=== PATIENT | male | born 1965 | race Caucasian/White ===

== ENCOUNTER 2018-04-15 13:00 | Inpatient (IN) | payer MEDICAID ==
[~2018-04-15] VITALS: Ht 175.3 cm; Wt 77.1 kg
[2018-04-15 13:35] VITALS: BP 125/68
[2018-04-15] MEDS ORDERED: HALOPERIDOL 5 MG TABLET PO PRN (13:45)
[2018-04-15] MEDS ORDERED: RISP.5 PO (14:40)
[2018-04-15 16:00] VITALS: BP 124/76
[2018-04-15] MEDS: LORazepam 2 MG TABLET PO PRN (16:43)
[2018-04-15] MEDS ORDERED: MAG HYDROX/AL HYDROX/SIMETH ES 30 ML SUSPENSION UDCUP PO PRN (17:15)
[2018-04-15] MEDS ORDERED: IBUPROFEN 400 MG TABLET PO PRN (17:15)
[2018-04-15] MEDS ORDERED: ACETAMINOPHEN 325 MG TABLET PO PRN (17:15)
[2018-04-15] MEDS ORDERED: LOPERAMIDE HCL 2 MG CAPSULE PO PRN (17:15)
[2018-04-15] MEDS ORDERED: NICOTINE 14 MG/24 HOUR PATCH TD PRN (17:15)
[2018-04-15] MEDS ORDERED: ONDANSETRON HCL 4 MG TABLET PO PRN (17:15)
[2018-04-15] MEDS ORDERED: MAGNESIUM HYDROXIDE SUSPENSION 30 ML UDCUP PO PRN (17:15)
[2018-04-15] MEDS ORDERED: CloNIDine HCL 0.1 MG TABLET PO PRN (17:15)
[2018-04-15] MEDS ORDERED: ALBUTEROL SULFATE HFA 90 MCG/PUFF 8 GM INHALER IH PRN (17:15)
[2018-04-15] MEDS ORDERED: PETROLATUM,WHITE 71 GM JELLY TP PRN (17:15)
[2018-04-16 08:02] LABS: AMPHET/METH SCREEN,URINE NEGATIVE (NEGATIVE); BARBITURATE SCREEN, URINE NEGATIVE (NEGATIVE); BENZODIAZEPINES SCREEN,URINE NEGATIVE (NEGATIVE); CANNABINOID SCREEN,URINE NEGATIVE (NEGATIVE); COCAINE SCREEN,URINE NEGATIVE (NEGATIVE); METHADONE SCREEN, URINE NEGATIVE (NEGATIVE); OPIATE SCREEN,URINE NEGATIVE (NEGATIVE)
[2018-04-16 08:13] LABS: PHENCYCLIDINE SCREEN,URINE NEGATIVE (NEGATIVE)
[2018-04-16 08:25] VITALS: BP 104/62
[2018-04-16 08:47] LABS: BILIRUBIN,URINE NEGATIVE (NEGATIVE); GLUCOSE, URINE (UA) NEGATIVE (NEGATIVE); KETONES,URINE NEGATIVE (NEGATIVE); LEUKOCYTE ESTERASE ,URINE NEGATIVE (NEGATIVE); NITRATE,URINE NEGATIVE (NEGATIVE); OCCULT BLOOD,URINE TRACE (NEGATIVE); PH,URINE 5.5 (5.0-8.0); PROTEIN,URINE NEGATIVE (NEGATIVE); UROBILINOGEN,URINE 0.2 mg/dL (<=1.0)
[2018-04-16 08:53] LABS: APPEARANCE,URINE HAZY (CLEAR)
[2018-04-16 09:15] LABS: BACTERIA,URINE Moderate /HPF (None Seen); CALCIUM OXALATE CRYSTALS,UR Few /LPF (None Seen); WBC,URINE 0-2 /HPF (0-5)
[2018-04-16] MEDS: DOCUSATE SODIUM 100 MG CAPSULE PO PRN (11:05)
[2018-04-16] MEDS: OLANZapine 5 MG TABLET PO SCH (16:03)
[2018-04-16] MEDS: LORazepam 2 MG TABLET PO PRN (16:03)
[2018-04-16 16:18] VITALS: BP 119/68
[2018-04-17 06:53] VITALS: BP 110/68
[2018-04-17] MEDS: OLANZapine 5 MG TABLET PO SCH ×2 (08:48→16:09)
[2018-04-17] MEDS: FLUoxetine HCL 20 MG CAPSULE PO SCH (08:48)
[2018-04-17] MEDS: DOCUSATE SODIUM 100 MG CAPSULE PO PRN (13:25)
[2018-04-17 16:00] VITALS: BP 115/69
[2018-04-17] MEDS: LORazepam 2 MG TABLET PO PRN (16:09)
[2018-04-17] MEDS: ZOLPIDEM TARTRATE 10 MG TABLET PO PRN (20:25)
[2018-04-18 01:14] VITALS: BP 102/60
[2018-04-18] MEDS: FLUoxetine HCL 20 MG CAPSULE PO SCH (08:19)
[2018-04-18] MEDS: OLANZapine 5 MG TABLET PO SCH (08:19)
[2018-04-18] MEDS: LORazepam 2 MG TABLET PO PRN ×2 (08:19→16:27)
[2018-04-18 16:16] VITALS: BP 115/75
[2018-04-18] MEDS: OLANZapine 7.5 MG TABLET PO SCH (16:27)
[2018-04-18] MEDS: ZOLPIDEM TARTRATE 10 MG TABLET PO PRN (20:23)
[2018-04-19 05:34] VITALS: BP 115/87
[2018-04-19] MEDS: FLUoxetine HCL 20 MG CAPSULE PO SCH (08:02)
[2018-04-19] MEDS: OLANZapine 7.5 MG TABLET PO SCH ×2 (08:02→16:27)
[2018-04-19 08:20] VITALS: BP 115/74
[2018-04-19 16:02] VITALS: BP 106/65
[2018-04-19] MEDS: LORazepam 2 MG TABLET PO PRN (16:27)
[2018-04-19] MEDS: ZOLPIDEM TARTRATE 10 MG TABLET PO PRN (20:17)
[2018-04-20 05:28] VITALS: BP 102/63
[2018-04-20 08:24] VITALS: BP 100/60
[2018-04-20] MEDS: OLANZapine 7.5 MG TABLET PO SCH ×2 (08:48→16:58)
[2018-04-20] MEDS: FLUoxetine HCL 20 MG CAPSULE PO SCH (08:48)
[2018-04-20 16:02] VITALS: BP 111/65
[2018-04-20] MEDS: ZOLPIDEM TARTRATE 10 MG TABLET PO PRN (21:25)
[2018-04-21 08:02] VITALS: BP 104/60
[2018-04-21] MEDS: OLANZapine 7.5 MG TABLET PO SCH (08:33)
[2018-04-21] MEDS: FLUoxetine HCL 20 MG CAPSULE PO SCH (08:33)
[2018-04-21] MEDS ORDERED: FLUO-191 PO (11:39)
[2018-04-21] MEDS ORDERED: OLAN7.5T2 PO (11:39)
== END 2018-04-21 13:15 | disposition home or self-care (01) | DRG 750 ==
LOC: B2S 14:44
PROVIDERS: ADMIT Psychiatry & Neurology Psychiatry; ATTEND Psychiatry & Neurology Psychiatry
DX: F25.0 Schizoaffective disorder, bipolar type (principal); R45.851 Suicidal ideations; Z91.19 Patient's noncompliance with other medical treatment and regimen; F41.9 Anxiety disorder, unspecified; F19.90 Other psychoactive substance use, unspecified, uncomplicated; F10.10 Alcohol abuse, uncomplicated; F15.90 Other stimulant use, unspecified, uncomplicated; Z71.51 Drug abuse counseling and surveillance of drug abuser; Z59.0 Homelessness; Z91.5 Personal history of self-harm; Z71.41 Alcohol abuse counseling and surveillance of alcoholic
CPT/HCPCS: 80307; 87081; 87086

== ENCOUNTER 2018-04-21 23:00 | Inpatient (IN) | payer MEDICAID ==
[~2018-04-21] VITALS: Ht 177.8 cm; Wt 79.8 kg
[~2018-04-21 23:00] MED LIST: FLUO-191 PO; OLAN7.5T2 PO; RISP.5 PO
[2018-04-21] MEDS ORDERED: HALOPERIDOL 5 MG TABLET PO PRN (23:30)
[2018-04-21 23:31] VITALS: BP 127/84
[2018-04-22 00:14] VITALS: BP 121/68
[2018-04-22] MEDS: LORazepam 2 MG TABLET PO PRN ×3 (01:38→17:08)
[2018-04-22] MEDS: ZOLPIDEM TARTRATE 10 MG TABLET PO PRN ×2 (02:35→20:14)
[2018-04-22] MEDS ORDERED: ACETAMINOPHEN 325 MG TABLET PO PRN (06:45)
[2018-04-22] MEDS ORDERED: MAG HYDROX/AL HYDROX/SIMETH ES 30 ML SUSPENSION UDCUP PO PRN (06:45)
[2018-04-22] MEDS ORDERED: LOPERAMIDE HCL 2 MG CAPSULE PO PRN (06:45)
[2018-04-22] MEDS ORDERED: MAGNESIUM HYDROXIDE SUSPENSION 30 ML UDCUP PO PRN (06:45)
[2018-04-22] MEDS ORDERED: IBUPROFEN 400 MG TABLET PO PRN (06:45)
[2018-04-22] MEDS ORDERED: DOCUSATE SODIUM 100 MG CAPSULE PO PRN (06:45)
[2018-04-22] MEDS ORDERED: PETROLATUM,WHITE 71 GM JELLY TP PRN (06:45)
[2018-04-22] MEDS ORDERED: ONDANSETRON HCL 4 MG TABLET PO PRN (06:45)
[2018-04-22 08:38] VITALS: BP 103/64
[2018-04-22 16:03] VITALS: BP 113/62
[2018-04-22] MEDS: OLANZapine 7.5 MG TABLET PO SCH (17:08)
[2018-04-23 00:35] VITALS: BP 110/68
[2018-04-23] MEDS: LORazepam 2 MG TABLET PO PRN ×3 (05:04→18:05)
[2018-04-23 08:00] VITALS: BP 115/70
[2018-04-23] MEDS: OLANZapine 7.5 MG TABLET PO SCH ×2 (08:45→16:02)
[2018-04-23] MEDS: FLUoxetine HCL 20 MG CAPSULE PO SCH (08:46)
[2018-04-23 16:00] VITALS: BP 111/90
[2018-04-24 01:04] VITALS: BP 106/60
[2018-04-24 08:21] VITALS: BP 100/60
[2018-04-24] MEDS: LORazepam 2 MG TABLET PO PRN ×2 (08:34→14:10)
[2018-04-24] MEDS: OLANZapine 7.5 MG TABLET PO SCH ×2 (08:34→16:01)
[2018-04-24] MEDS: FLUoxetine HCL 20 MG CAPSULE PO SCH (08:35)
[2018-04-24 16:08] VITALS: BP 103/71
[2018-04-24] MEDS: ZOLPIDEM TARTRATE 10 MG TABLET PO PRN (20:28)
[2018-04-25 03:11] VITALS: BP 101/68
[2018-04-25 08:15] VITALS: BP 107/54
[2018-04-25] MEDS: FLUoxetine HCL 20 MG CAPSULE PO SCH (09:00)
[2018-04-25] MEDS: OLANZapine 7.5 MG TABLET PO SCH ×2 (09:00→16:20)
[2018-04-25] MEDS: LORazepam 2 MG TABLET PO PRN ×2 (12:49→19:54)
[2018-04-25] MEDS: PROPRANOLOL HCL 10 MG TABLET PO SCH (16:20)
[2018-04-25 16:29] VITALS: BP 102/66
[2018-04-25 19:50] VITALS: BP 115/70
[2018-04-25] MEDS: ZOLPIDEM TARTRATE 10 MG TABLET PO PRN (21:39)
[2018-04-26 01:39] VITALS: BP 108/64
[2018-04-26 08:28] VITALS: BP 102/67
[2018-04-26 09:17] VITALS: BP 112/71
[2018-04-26] MEDS: FLUoxetine HCL 20 MG CAPSULE PO SCH (09:17)
[2018-04-26] MEDS: PROPRANOLOL HCL 10 MG TABLET PO SCH (09:17)
[2018-04-26] MEDS: OLANZapine 7.5 MG TABLET PO SCH (09:18)
[2018-04-26] MEDS ORDERED: PROP10TA72 PO ×2 (13:15→14:13)
[2018-04-26] MEDS ORDERED: FLUO10TA3 PO (14:12)
[2018-04-26] MEDS ORDERED: FLUO10CA21 PO (14:12)
[2018-04-26] MEDS ORDERED: OLAN7.5T2 PO (14:13)
== END 2018-04-26 16:35 | disposition home or self-care (01) | DRG 750 ==
LOC: B2S 23:31
PROVIDERS: ADMIT Psychiatry & Neurology Psychiatry; ATTEND Psychiatry & Neurology Psychiatry
DX: F25.0 Schizoaffective disorder, bipolar type (principal); R45.851 Suicidal ideations; Z91.19 Patient's noncompliance with other medical treatment and regimen; F41.9 Anxiety disorder, unspecified; F10.10 Alcohol abuse, uncomplicated; F19.90 Other psychoactive substance use, unspecified, uncomplicated; F15.90 Other stimulant use, unspecified, uncomplicated; R00.0 Tachycardia, unspecified; M19.90 Unspecified osteoarthritis, unspecified site; Z79.899 Other long term (current) drug therapy; Z91.5 Personal history of self-harm; Z59.0 Homelessness; Z71.41 Alcohol abuse counseling and surveillance of alcoholic; Z71.51 Drug abuse counseling and surveillance of drug abuser
CPT/HCPCS: 87081

== ENCOUNTER 2018-04-30 08:29 | Inpatient (IN) | payer MEDICAID ==
[~2018-04-30] VITALS: Ht 180.3 cm; Wt 81.9 kg
[~2018-04-30 08:29] MED LIST changes: -FLUO-191 PO; -RISP.5 PO
[2018-04-30] MEDS ORDERED: LORA1TAB3 PO (20:23)
[2018-05-01 14:53] VITALS: BP 114/72
[2018-05-01] MEDS: LORazepam 2 MG TABLET PO PRN ×2 (15:15→19:18)
[2018-05-01 16:08] VITALS: BP 116/70
[2018-05-01] MEDS: ZOLPIDEM TARTRATE 10 MG TABLET PO PRN (20:57)
[2018-05-02] MEDS: LORazepam 2 MG TABLET PO PRN ×2 (04:21→16:12)
[2018-05-02 06:14] VITALS: BP 110/68
[2018-05-02 08:06] VITALS: BP 112/76
[2018-05-02] MEDS: OLANZapine 7.5 MG TABLET PO SCH ×2 (09:54→16:12)
[2018-05-02 16:06] VITALS: BP 112/74
[2018-05-03 00:16] VITALS: BP 105/65
[2018-05-03 08:10] VITALS: BP 110/67
[2018-05-03] MEDS: OLANZapine 7.5 MG TABLET PO SCH ×2 (08:50→16:43)
[2018-05-03 16:41] VITALS: BP 126/77
[2018-05-03] MEDS: LORazepam 2 MG TABLET PO PRN (16:44)
[2018-05-03] MEDS: ZOLPIDEM TARTRATE 10 MG TABLET PO PRN (20:22)
[2018-05-04] MEDS: LORazepam 2 MG TABLET PO PRN ×2 (04:59→17:29)
[2018-05-04 08:10] VITALS: BP 116/70
[2018-05-04] MEDS: OLANZapine 7.5 MG TABLET PO SCH ×2 (08:37→16:01)
[2018-05-04 16:16] VITALS: BP 110/76
[2018-05-04] MEDS: ZOLPIDEM TARTRATE 10 MG TABLET PO PRN (20:34)
[2018-05-05] MEDS: LORazepam 2 MG TABLET PO PRN (00:37)
[2018-05-05 02:20] VITALS: BP 103/70
[2018-05-05 08:19] VITALS: BP 110/66
[2018-05-05] MEDS: FLUoxetine HCL 20 MG CAPSULE PO SCH (09:00)
[2018-05-05] MEDS: OLANZapine 7.5 MG TABLET PO SCH ×2 (10:32→16:03)
[2018-05-05 16:49] VITALS: BP 106/74
[2018-05-05] MEDS: ZOLPIDEM TARTRATE 10 MG TABLET PO PRN (20:33)
[2018-05-06 06:53] VITALS: BP 102/68
[2018-05-06 08:34] VITALS: BP 107/66
[2018-05-06] MEDS: OLANZapine 7.5 MG TABLET PO SCH ×2 (09:20→16:49)
[2018-05-06] MEDS: FLUoxetine HCL 20 MG CAPSULE PO SCH (09:20)
[2018-05-06 16:06] VITALS: BP 106/64
[2018-05-06] MEDS: LORazepam 2 MG TABLET PO PRN (16:49)
[2018-05-07 01:50] VITALS: BP 110/74
[2018-05-07] MEDS: FLUoxetine HCL 20 MG CAPSULE PO SCH (08:34)
[2018-05-07] MEDS: OLANZapine 7.5 MG TABLET PO SCH ×2 (08:34→16:14)
[2018-05-07 08:38] VITALS: BP 105/67
[2018-05-07] MEDS: LORazepam 2 MG TABLET PO PRN (12:19)
[2018-05-08] VITALS: BP 102/61
[2018-05-08 08:09] VITALS: BP 109/64
[2018-05-08] MEDS: OLANZapine 7.5 MG TABLET PO SCH ×2 (09:01→16:01)
[2018-05-08] MEDS: FLUoxetine HCL 20 MG CAPSULE PO SCH (09:01)
[2018-05-08] MEDS: LORazepam 2 MG TABLET PO PRN ×2 (14:31→20:01)
[2018-05-08 20:03] VITALS: BP 108/72
[2018-05-09 03:25] VITALS: BP 101/70
[2018-05-09 08:24] VITALS: BP 100/70
[2018-05-09] MEDS: FLUoxetine HCL 20 MG CAPSULE PO SCH ×2 (08:52→10:34)
[2018-05-09] MEDS: OLANZapine 7.5 MG TABLET PO SCH ×3 (08:52→16:14)
[2018-05-09 16:11] VITALS: BP 112/67
[2018-05-09] MEDS: LORazepam 2 MG TABLET PO PRN (16:14)
[2018-05-10 01:34] VITALS: BP 108/67
[2018-05-10] MEDS ORDERED: FLUO-191 PO (07:57)
[2018-05-10 08:50] VITALS: BP 116/66
[2018-05-10] MEDS: FLUoxetine HCL 20 MG CAPSULE PO SCH ×2 (08:51→09:00)
[2018-05-10] MEDS: OLANZapine 7.5 MG TABLET PO SCH ×2 (08:51→09:00)
== END 2018-05-10 10:45 | disposition home or self-care (01) | DRG 750 ==
LOC: B3A 05-01 14:07 → B2S 05-04 20:30
PROVIDERS: ATTEND Psychiatry & Neurology Psychiatry
DX: F25.0 Schizoaffective disorder, bipolar type (principal); R45.851 Suicidal ideations; F41.9 Anxiety disorder, unspecified; G89.29 Other chronic pain; M19.072 Primary osteoarthritis, left ankle and foot; F10.10 Alcohol abuse, uncomplicated; D64.9 Anemia, unspecified; F19.10 Other psychoactive substance abuse, uncomplicated; M54.9 Dorsalgia, unspecified; Z79.899 Other long term (current) drug therapy; Z71.41 Alcohol abuse counseling and surveillance of alcoholic; Z71.51 Drug abuse counseling and surveillance of drug abuser; Z88.8 Allergy status to other drugs, medicaments and biological substances

== ENCOUNTER 2018-04-30 19:50 | Emergency (ER) | payer MEDICAID ==
[~2018-04-30] VITALS: Ht 182.9 cm; Wt 80.0 kg
[~2018-04-30 19:50] MED LIST changes: +FLUO10CA21 PO; +PROP10TA72 PO
[2018-04-30] MEDS ORDERED: LORA1TAB3 PO (20:23)
[2018-04-30 20:57] LABS: AMPHET/METH SCREEN,URINE NEGATIVE (NEGATIVE); BARBITURATE SCREEN, URINE NEGATIVE (NEGATIVE); BENZODIAZEPINES SCREEN,URINE NEGATIVE (NEGATIVE); CANNABINOID SCREEN,URINE NEGATIVE (NEGATIVE); COCAINE SCREEN,URINE NEGATIVE (NEGATIVE); METHADONE SCREEN, URINE NEGATIVE (NEGATIVE); OPIATE SCREEN,URINE NEGATIVE (NEGATIVE)
[2018-04-30 20:58] LABS: PHENCYCLIDINE SCREEN,URINE NEGATIVE (NEGATIVE)
[2018-04-30 22:51] LABS: BASOPHILS % (AUTO) 0.8 % (0.0-2.0); EOSINOPHILS % (AUTO) 3.5 % (1.0-6.0); HEMATOCRIT 35.5 % (41-53); LYMPHOCYTES # (AUTO) 2.5 K/uL (1.0-4.8); LYMPHOCYTES % (AUTO) 32.9 % (22.0-44.0); MEAN CORPUSCULAR HEMOGLOBIN 31.3 pg (26.0-34.0); MEAN CORPUSCULAR HGB CONC 33.8 G/dL (31.0-37.0); MEAN CORPUSCULAR VOLUME 93 fL (80-100); MONOCYTES # (AUTO) 0.9 K/uL (0.1-1.0); MONOCYTES % (AUTO) 11.5 % (2.0-9.0); NEUTROPHILS # (AUTO) 3.9 K/uL (1.8-7.7); NEUTROPHILS % (AUTO) 51.3 % (40.0-70.0); PLATELET COUNT (AUTO) 319 K/uL (150-450); RED BLOOD CELL COUNT(AUTO) 3.83 MIL/uL (4.50-5.90); RED CELL DISTRIBUTION WIDTH 14.7 % (11.5-14.5)
[2018-04-30 23:03] LABS: ANION GAP 7 mmol/L (8-16); CALCIUM, TOTAL 8.5 mg/dL (8.8-10.5); CARBON DIOXIDE 29 mmol/L (22-29); CHLORIDE 106 mmol/L (98-107); CREATININE 0.68 mg/dL (0.60-1.30); GLOMERULAR FILTR. RATE CALC > 60 mL/min (>60); GLUCOSE,RANDOM 98 mg/dL (70-110); POTASSIUM 3.9 mmol/L (3.5-5.1); SODIUM SERUM 142 mmol/L (136-145); UREA NITROGEN, BLOOD 9 mg/dL (7-18)
[2018-04-30 23:10] LABS: ALANINE AMINOTRANSFERASE 27 U/L (12-78); ALBUMIN 3.3 g/dL (3.4-5.0); ALKALINE PHOSPHATASE 103 U/L (46-116); ASPARTATE AMINOTRANSFERASE 16 U/L (15-37); BILIRUBIN,TOTAL 0.2 mg/dL (0.1-1.0); TOTAL PROTEIN, SERUM 6.8 g/dL (6.4-8.2)
[2018-05-01 01:42] VITALS: BP 120/90
== END 2018-05-01 01:44 | disposition home or self-care (01) ==
LOC: EMS 19:50
DX: R45.851 Suicidal ideations (principal); F41.9 Anxiety disorder, unspecified; F32.9 Major depressive disorder, single episode, unspecified; F20.9 Schizophrenia, unspecified; I10 Essential (primary) hypertension; F17.210 Nicotine dependence, cigarettes, uncomplicated; F12.90 Cannabis use, unspecified, uncomplicated; F19.90 Other psychoactive substance use, unspecified, uncomplicated; Z88.8 Allergy status to other drugs, medicaments and biological substances
CPT/HCPCS: 36415; 80053; 80307; 85025; 99284; 99406; G0480